=== PATIENT | female | born 1950 | race Caucasian/White ===

== ENCOUNTER 2019-08-17 07:39 | Emergency (ER) | payer MEDICARE, OTHER ==
[2019-08-17 07:53] VITALS: BP 136/77
[2019-08-17] MEDS ORDERED: TETRACAINE HCL 0.5% OPH SOLN 4 ML OS ONE (08:09)
--- NOTE | 2019-08-17 08:19 | ER Document Report ---
HPI - HPI Patient complains to provider of: right eye irritation Time Seen by Provider: 08/17/19 08:08 Onset: This morning Onset/Duration: Sudden Quality of pain: Achy Pain Level: 4 Context: This 69-year-old female presents emergency department with right eye irritation. She reports she woke up with this irritation. Denies wearing contacts. Denies trauma. Reports no problems with her vision. Denies drainage. Reports the light is irritating her eye more. Denies history of injury to the eyes. Denies other symptoms such as fever vomiting diarrhea. Associated Symptoms: None Exacerbated by: Other - LIGHT Relieved by: Denies Similar symptoms previously: No Recently seen / treated by doctor: No - REPRODUCTIVE Reproductive: DENIES: : Past Medical History - General Information source: Patient - Social History Smoking Status: Never Smoker Chew tobacco use (# tins/day): No Frequency of alcohol use: Occasional Drug Abuse: None Lives with: Family Family History: None Patient has suicidal ideation: No Patient has homicidal ideation: No - Medical History Medical History: Negative Surgical Hx: Negative Vertical Provider Document - CONSTITUTIONAL Agree With Documented VS: Yes Exam Limitations: No Limitations General Appearance: WD/WN, No Apparent Distress - INFECTION CONTROL TRAVEL OUTSIDE OF THE [place] IN LAST 30 DAYS: No - HEENT HEENT: Atraumatic, Conjuctival Injection, Normocephalic, PERRLA. negative: Pharyngeal Erythema - NECK Neck: Normal Inspection, Supple. negative: Lymphadenopathy-Left, Lymphadenopathy-Right - RESPIRATORY Respiratory: Breath Sounds Normal, No Respiratory Distress - CARDIOVASCULAR Cardiovascular: Regular Rate, Regular Rhythm - MUSCULOSKELETAL/EXTREMETIES Musculoskeletal/Extremeties: MAEW, FROM - NEURO Level of Consciousness: Awake, Alert, Appropriate Motor/Sensory: No Motor Deficit - DERM Integumentary: Warm, Dry Course - Re-evaluation Re-evalutation: 08/17/19 19:15 This 69-year-old female presents emergency department with complaints of right eye irritation. She reports she had the pain when she started waking up. Denies contact use. Denies vision issues reports the light bothers it. Patient is visiting from [place] for a here. Eye exam completed. Patient was treated with erythromycin ointment. She reports she has been treated with erythromycin in the past denies allergies. She was instructed to monitor her symptoms. Follow-up with ophthalmology as soon she returns to [place] return here if she has any concerns worsening symptoms. She verbalized understanding to all instructions. - Vital Signs Vital signs: Temp Pulse Resp BP Pulse Ox 97.7 F 65 16 136/77 H 96 08/17/19 07:48 08/17/19 07:48 08/17/19 07:48 08/17/19 07:48 08/17/19 07:48 Procedures - Eye Procedure Right Eye Irrigated w/ Saline (ccs): 10 Alcaine Drops Administered: Yes - Tetracaine Fluorescein applied: Right Antibiotic Oinment/Drps Admin: Right eye Slit lamp used: No Notes: 08/17/19 19:14 Tetracaine applied 1 drop to right eye. Patient reports almost immediate relief with from irritation. Fluorescein applied Jain lamp utilized to visualize the eye. Small abrasion noted to approximately 0900 on the right eye Discharge - Discharge Clinical Impression: Irritation of right eye Conjunctival abrasion Qualifiers: Encounter type: initial encounter Laterality: right Qualified Code(s): S05.01XA - Injury of conjunctiva and corneal abrasion without foreign body, right eye, initial encounter Condition: Stable Disposition: HOME, SELF-CARE Instructions: Erythromycin ([facility]) Additional Instructions: *You have been evaluated for eye irritation, conjunctivae abrasion *Use eye drops as prescribed- 1/2 inch ribbon right bottom lid three times a day for 4 days *Good hand washing *Follow up with an head screen worker upon to return to [place] *Return to ED for worsening condition, changes, needs, eye pain, vision concerns Monitor your blood pressure. Your blood pressure was elevated today. This may be because you were anxious, in pain or because you need medication. It is important to follow up with your primary care provider for full evaluation. Forms: Elevated Blood Pressure
[2019-08-17] MEDS ORDERED: ERYTHROMYCIN 0.5% OPH OINTMENT 3.5 GM (ER DISP) OD PRN (08:27)
== END 2019-08-17 08:39 | disposition home or self-care (01) ==
LOC: ER 07:39
DX: S05.01XA Injury of conjunctiva and corneal abrasion without foreign body, right eye, initial encounter (principal); X58.XXXA Exposure to other specified factors, initial encounter
CPT/HCPCS: 99283; A9270; J3490